=== PATIENT | male | born 1955 | race Caucasian/White ===

== ENCOUNTER 2019-03-21 11:09 | Outpatient (CLI) | payer OTHER | END 2019-03-21 11:13 | disposition home or self-care (01) | LOC: SONOGRAMA 11:09 → MAMO-SONO 11:15 | DX: R10.84 Generalized abdominal pain (principal) ==

== ENCOUNTER 2022-07-04 14:51 | Outpatient (CLI) | payer OTHER | END 2022-07-04 14:55 | disposition home or self-care (01) | LOC: RAD 14:51 | PROVIDERS: ATTEND Specialist | DX: J45.991 Cough variant asthma (principal) ==

== ENCOUNTER 2022-10-18 13:31 | Outpatient (CLI) | payer OTHER | END 2022-10-18 13:37 | disposition home or self-care (01) | LOC: LAB 13:31 | PROVIDERS: ATTEND Specialist | DX: B15.9 Hepatitis A without hepatic coma (principal); B19.10 Unspecified viral hepatitis B without hepatic coma; B19.20 Unspecified viral hepatitis C without hepatic coma; K76.0 Fatty (change of) liver, not elsewhere classified; I10 Essential (primary) hypertension; E78.00 Pure hypercholesterolemia, unspecified; D64.9 Anemia, unspecified; E11.21 Type 2 diabetes mellitus with diabetic nephropathy; E03.8 Other specified hypothyroidism; E11.65 Type 2 diabetes mellitus with hyperglycemia ==

== ENCOUNTER 2023-01-19 08:54 | Outpatient (CLI) | payer OTHER ==
[2023-01-19 10:06] LABS: HEMATOCRIT 45.9 % (39.0-48.0); HEMOGLOBIN 15.3 g/dL (13-16.00); MEAN CORPUSCULAR HEMOGLOBIN 30.6 pg (27.00-32.0); MEAN CORPUSCULAR HGB CONC 33.3 g/dl (32.0-36.0); RED BLOOD COUNT 4.98 M/uL (4.00-6.00); RED CELL DISTRIBUTION WIDTH 14.8 % (11.5-14.5)
[2023-01-19 10:10] LABS: PLATELET COUNT 108 K/uL (150-450)
[2023-01-19 10:50] LABS: ALBUMIN 3.9 gm/dL (3.4-5.0); ALKALINE PHOSPHATASE 93 U/L (50-136); ALT/SGPT 120 U/L (12-78); AST/SGOT 79 U/L (15-37); BILIRUBIN TOTAL 1.01 mg/dL (0.3-1.2); BLOOD UREA NITROGEN 19 mg/dL (7-18); BUN CREA RATIO 20 (7.0-25.0); CALCIUM 9.6 mg/dL (8.5-10.1); CARBON DIOXIDE 28 mEq/L (21-32); CHLORIDE 103 mmol/L (98-107); CHOLESTEROL 131 mg/dL (0-200); CREATININE SERUM 0.96 mg/dL (0.70-1.30); GFR 77.66; GLOBULINA 3.8 G/DL (2.4-3.5); GLUCOSE FASTING 141 mg/dL (65-100); HDL 60 mg/dl (40-60); LDL 58 mg/dl (0-130); OSMOLALITY SERUM 275 MOSM/KG (275-295); POTASSIUM 4.28 mEq/L (3.5-5.1); SODIUM 135 mmol/L (136-145); TOTAL PROTEIN 7.7 gm/dL (6.4-8.2); TRIGLYCERIDES 66 mg/dL (0-150); VLDL 13 (0-39)
[2023-01-19 12:26] LABS: FOLIC ACID > 20.00 ng/ml (4.78-20)
[2023-01-20 09:08] LABS: % FREE PSA 36.2 % (.); CA 19-9 29 U/mL (0-35); free psa 0.94 ng/mL; total psa 2.6 ng/mL (0.0-4.0)
== END 2023-01-19 08:57 | disposition home or self-care (01) ==
LOC: LAB 08:54
PROVIDERS: ATTEND Specialist
DX: E11.69 Type 2 diabetes mellitus with other specified complication (principal); N39.9 Disorder of urinary system, unspecified; E03.8 Other specified hypothyroidism; E11.21 Type 2 diabetes mellitus with diabetic nephropathy; R07.81 Pleurodynia; Z13.220 Encounter for screening for lipoid disorders

== ENCOUNTER 2023-04-12 15:40 | Outpatient (CLI) | payer OTHER ==
[2023-04-12 16:21] LABS: HEMATOCRIT 44.8 % (39.0-48.0); HEMOGLOBIN 15.3 g/dL (13-16.00); MEAN CELL VOLUME 89.8 fL (80.0-100.00); MEAN CORPUSCULAR HEMOGLOBIN 30.6 pg (27.00-32.0); MEAN CORPUSCULAR HGB CONC 34.1 g/dl (32.0-36.0); RED BLOOD COUNT 4.99 M/uL (4.00-6.00); RED CELL DISTRIBUTION WIDTH 15.5 % (11.5-14.5)
[2023-04-12 16:47] LABS: PLATELET COUNT 103 K/uL (150-450)
[2023-04-12 16:49] LABS: ALBUMIN 3.9 gm/dL (3.4-5.0); BILIRUBIN TOTAL 1.45 mg/dL (0.3-1.2); CALCIUM 9.3 mg/dL (8.5-10.1); CHOL HDL RATIO 2.2 (0-5.0); CREATININE SERUM 0.96 mg/dL (0.70-1.30); GFR 77.66; GLOBULINA 3.9 G/DL (2.4-3.5); POTASSIUM 4.25 mEq/L (3.5-5.1); PROSTATIC SPECIFIC ANTIGEN 2.62 NG/ML (0.010-4.00); TOTAL PROTEIN 7.8 gm/dL (6.4-8.2)
[2023-04-13 12:05] LABS: FOLIC ACID > 20.00 ng/ml (4.78-20)
[2023-04-13 13:24] LABS: MANUAL PLATELET COUNT 190; PLATELET ESTIMATE NORMAL (NORMAL)
== END 2023-04-12 15:50 | disposition home or self-care (01) ==
LOC: LAB 15:40
PROVIDERS: ATTEND Internal Medicine Hematology & Oncology
DX: K76.0 Fatty (change of) liver, not elsewhere classified (principal); E78.2 Mixed hyperlipidemia; I11.9 Hypertensive heart disease without heart failure; D63.8 Anemia in other chronic diseases classified elsewhere; D50.8 Other iron deficiency anemias; R79.9 Abnormal finding of blood chemistry, unspecified; R74.02 Elevation of levels of lactic acid dehydrogenase [LDH]; K76.89 Other specified diseases of liver; D51.8 Other vitamin B12 deficiency anemias; R97.0 Elevated carcinoembryonic antigen [CEA]; R97.8 Other abnormal tumor markers; R97.20 Elevated prostate specific antigen [PSA]; D69.6 Thrombocytopenia, unspecified; D51.1 Vitamin B12 deficiency anemia due to selective vitamin B12 malabsorption with proteinuria; D51.3 Other dietary vitamin B12 deficiency anemia; E11.9 Type 2 diabetes mellitus without complications

== ENCOUNTER 2023-04-16 15:12 | Outpatient (CLI) | payer OTHER ==
[2023-04-16 16:02] LABS: INR 1.05
[2023-04-16 16:07] LABS: ALBUMIN 3.9 gm/dL (3.4-5.0); BILIRUBIN TOTAL 0.79 mg/dL (0.3-1.2); BILIRUBIN,CONJUGATED 0.26 mg/dL (0.0-0.2); BILIRUBIN,UNCONJUGATED 0.53 mg/dL (0.0-0.6); TOTAL PROTEIN 7.8 gm/dL (6.4-8.2)
== END 2023-04-16 15:17 | disposition home or self-care (01) ==
LOC: LAB 15:12
PROVIDERS: ATTEND Specialist
DX: D64.9 Anemia, unspecified (principal); D68.8 Other specified coagulation defects; C22.0 Liver cell carcinoma; K75.81 Nonalcoholic steatohepatitis (NASH)

== ENCOUNTER 2023-07-23 14:14 | Outpatient (CLI) | payer OTHER ==
[2023-07-23 14:59] LABS: HEMATOCRIT 44.4 % (39.0-48.0); HEMOGLOBIN 15.2 g/dL (13-16.00); MEAN CELL VOLUME 91.8 fL (80.0-100.00); MEAN CORPUSCULAR HEMOGLOBIN 31.4 pg (27.00-32.0); MEAN CORPUSCULAR HGB CONC 34.2 g/dl (32.0-36.0); RED BLOOD COUNT 4.84 M/uL (4.00-6.00); RED CELL DISTRIBUTION WIDTH 15.3 % (11.5-14.5)
[2023-07-23 15:04] LABS: PLATELET COUNT 104 K/uL (150-450)
[2023-07-23 15:21] LABS: BILIRUBIN TOTAL 1.31 mg/dL (0.3-1.2); CALCIUM 9.8 mg/dL (8.5-10.1); CHOL HDL RATIO 2.1 (0-5.0); CREATININE SERUM 0.88 mg/dL (0.70-1.30); GFR 85.86; GLOBULINA 3.6 G/DL (2.4-3.5); POTASSIUM 3.99 mEq/L (3.5-5.1); TOTAL PROTEIN 7.6 gm/dL (6.4-8.2)
== END 2023-07-23 14:15 | disposition home or self-care (01) ==
LOC: LAB 14:14
PROVIDERS: ATTEND Internal Medicine
DX: E11.9 Type 2 diabetes mellitus without complications (principal); E78.00 Pure hypercholesterolemia, unspecified; R94.5 Abnormal results of liver function studies

== ENCOUNTER 2023-08-09 13:10 | Outpatient (CLI) | payer OTHER ==
[2023-08-09 14:20] LABS: PH,URINE 5.5 (5.0-8.0); URINE APPEARANCE Clear; URINE BILIRRUBIN Negative (NEGATIVE); URINE BLOOD Negative; URINE COLOR Yellow; URINE LEUKOCYTE Negative; URINE NITRATE Negative; URINE PROTEIN Negative (NEGATIVE); URINE UROBILINOGEN 0.2 E.U./dl
[2023-08-09 14:25] LABS: URINE BACTERIA 11.3 uL (0.0-1933); URINE EPITHELIAL CELLS 2.3 uL (0.0-38.8); URINE RBC 4.1 uL (0.0-20.8)
[2023-08-09 14:27] LABS: URINE GLUCOSE >=1000 MG/DL (NEGATIVE); URINE WBC 0.7 uL (0.0-23.2)
[2023-08-09 15:04] LABS: FREE TRIODOTIRONINE 2.41 pg/ml (2.18-3.98); T4 FREE 0.93 NG/ML (0.76-1.46); TSH 2.09 uIU/mL (0.358-3.74)
== END 2023-08-09 13:11 | disposition home or self-care (01) ==
LOC: LAB 13:10
PROVIDERS: ATTEND Specialist
DX: N39.9 Disorder of urinary system, unspecified (principal); E11.69 Type 2 diabetes mellitus with other specified complication; N25.81 Secondary hyperparathyroidism of renal origin; E11.21 Type 2 diabetes mellitus with diabetic nephropathy; E03.8 Other specified hypothyroidism; D64.89 Other specified anemias; Z12.5 Encounter for screening for malignant neoplasm of prostate; Z13.220 Encounter for screening for lipoid disorders

== ENCOUNTER 2023-08-09 14:06 | Outpatient (CLI) | payer OTHER | END 2023-08-09 14:11 | disposition home or self-care (01) | LOC: SONOGRAMA 14:06 | PROVIDERS: ATTEND Internal Medicine Hematology & Oncology | DX: D69.6 Thrombocytopenia, unspecified (principal); D51.1 Vitamin B12 deficiency anemia due to selective vitamin B12 malabsorption with proteinuria; D51.3 Other dietary vitamin B12 deficiency anemia; I10 Essential (primary) hypertension; E11.9 Type 2 diabetes mellitus without complications; E78.2 Mixed hyperlipidemia ==

== ENCOUNTER 2023-11-08 14:42 | Outpatient (CLI) | payer OTHER ==
[2023-11-08 15:27] LABS: PH,URINE 5.5 (5.0-8.0); URINE APPEARANCE Clear; URINE BILIRRUBIN Negative (NEGATIVE); URINE BLOOD Negative; URINE COLOR Yellow; URINE LEUKOCYTE Negative; URINE NITRATE Negative; URINE PROTEIN Negative (NEGATIVE); URINE UROBILINOGEN 0.2 E.U./dl
[2023-11-08 15:31] LABS: URINE BACTERIA 12.5 uL (0.0-1933); URINE RBC 2.7 uL (0.0-20.8)
[2023-11-08 15:39] LABS: URINE GLUCOSE >=1000 MG/DL (NEGATIVE)
[2023-11-08 15:49] LABS: INR 1.07; PARTIAL THROMBOPLASTIN TIME 26.8 SECONDS (22.0-34.0); PROTHROMBIN TIME 11.2 SECONDS (9.0-11.5)
[2023-11-08 16:21] LABS: % SATURACION 35.9 % (20-50); ALBUMIN 4.1 gm/dL (3.4-5.0); BILIRUBIN TOTAL 1.8 mg/dL (0.3-1.2); BILIRUBIN,CONJUGATED 0.46 mg/dL (0.0-0.2); BILIRUBIN,UNCONJUGATED 1.34 mg/dL (0.0-0.6); CALCIUM 9.9 mg/dL (8.5-10.1); CHOL HDL RATIO 2.2 (0-5.0); CREATININE SERUM 0.97 mg/dL (0.70-1.30); FERRITIN 91.9 NG/ML (26-388); GFR 76.51; POTASSIUM 4.64 mEq/L (3.5-5.1); TOTAL PROTEIN 8.1 gm/dL (6.4-8.2); TSH 2.16 uIU/mL (0.358-3.74)
[2023-11-08 17:19] LABS: COL EPI 134 SECONDS (82-175)
[2023-11-08 17:22] LABS: HEMATOCRIT 46.5 % (39.0-48.0); HEMOGLOBIN 15.9 g/dL (13-16.00); MEAN CELL VOLUME 92.4 fL (80.0-100.00); MEAN CORPUSCULAR HEMOGLOBIN 31.5 pg (27.00-32.0); MEAN CORPUSCULAR HGB CONC 34.1 g/dl (32.0-36.0); RED BLOOD COUNT 5.03 M/uL (4.00-6.00); RED CELL DISTRIBUTION WIDTH 15.1 % (11.5-14.5)
[2023-11-08 17:27] LABS: PLATELET COUNT 112 K/uL (150-450)
[2023-11-09 09:09] LABS: MANUAL PLATELET COUNT 290
[2023-11-09 09:31] LABS: PLATELET ESTIMATE NORMAL (NORMAL)
[2023-11-09 15:36] LABS: FOLIC ACID > 20.00 ng/ml (4.78-20)
[2023-11-10 09:15] LABS: ALPHA FETO PROTEIN 3.4 ng/mL (0.0-8.4)
[2023-11-10 13:09] LABS: ERYTHROPOIETIN 14.6 mIU/mL (2.6-18.5)
[2023-11-16 15:07] LABS: VITAMIN K 0.88 ng/mL (0.10-2.20)
== END 2023-11-08 14:56 | disposition home or self-care (01) ==
LOC: LAB 14:42
PROVIDERS: ATTEND Internal Medicine Hematology & Oncology
DX: D69.6 Thrombocytopenia, unspecified (principal); D51.1 Vitamin B12 deficiency anemia due to selective vitamin B12 malabsorption with proteinuria; D51.3 Other dietary vitamin B12 deficiency anemia; I10 Essential (primary) hypertension; E11.9 Type 2 diabetes mellitus without complications; E78.2 Mixed hyperlipidemia; K76.0 Fatty (change of) liver, not elsewhere classified; K74.69 Other cirrhosis of liver; D63.1 Anemia in chronic kidney disease; D50.8 Other iron deficiency anemias; R79.9 Abnormal finding of blood chemistry, unspecified; R74.02 Elevation of levels of lactic acid dehydrogenase [LDH]; K76.89 Other specified diseases of liver; D68.8 Other specified coagulation defects; C25.9 Malignant neoplasm of pancreas, unspecified; R77.2 Abnormality of alphafetoprotein; E03.9 Hypothyroidism, unspecified; N39.9 Disorder of urinary system, unspecified; D64.9 Anemia, unspecified; E11.65 Type 2 diabetes mellitus with hyperglycemia

== ENCOUNTER 2024-02-25 14:30 | Outpatient (CLI) | payer OTHER ==
[2024-02-25 15:10] LABS: HEMATOCRIT 43.9 % (39.0-48.0); HEMOGLOBIN 14.9 g/dL (13-16.00); MEAN CORPUSCULAR HEMOGLOBIN 31.3 pg (27.00-32.0); MEAN CORPUSCULAR HGB CONC 34.1 g/dl (32.0-36.0); RED BLOOD COUNT 4.77 M/uL (4.00-6.00); RED CELL DISTRIBUTION WIDTH 15.4 % (11.5-14.5)
[2024-02-25 15:25] LABS: PLATELET COUNT 119 K/uL (150-450)
[2024-02-25 15:47] LABS: ALBUMIN 4.1 gm/dL (3.4-5.0); BILIRUBIN TOTAL 1.43 mg/dL (0.3-1.2); BILIRUBIN,CONJUGATED 0.43 mg/dL (0.0-0.2); CHOL HDL RATIO 2.2 (0-5.0); CREATININE SERUM 1.02 mg/dL (0.70-1.30); GFR 72.2; INR 1.1; PARTIAL THROMBOPLASTIN TIME 26.3 SECONDS (22.0-34.0); POTASSIUM 4.29 mEq/L (3.5-5.1); PROTHROMBIN TIME 11.9 SECONDS (9.0-11.5); TOTAL PROTEIN 8.1 gm/dL (6.4-8.2); TSH 1.81 uIU/mL (0.358-3.74)
== END 2024-02-25 14:35 | disposition home or self-care (01) ==
LOC: LAB 14:30
PROVIDERS: ATTEND Specialist
DX: E03.9 Hypothyroidism, unspecified (principal); E78.2 Mixed hyperlipidemia; E11.65 Type 2 diabetes mellitus with hyperglycemia; D64.9 Anemia, unspecified; D68.8 Other specified coagulation defects; K75.81 Nonalcoholic steatohepatitis (NASH); E11.21 Type 2 diabetes mellitus with diabetic nephropathy; I11.9 Hypertensive heart disease without heart failure; I10 Essential (primary) hypertension; D63.8 Anemia in other chronic diseases classified elsewhere

== ENCOUNTER 2024-05-06 14:43 | Outpatient (CLI) | payer OTHER ==
[2024-05-06 15:37] LABS: HEMATOCRIT 45.3 % (39.0-48.0); HEMOGLOBIN 15.4 g/dL (13-16.00); MEAN CELL VOLUME 91.1 fL (80.0-100.00); RED BLOOD COUNT 4.97 M/uL (4.00-6.00)
[2024-05-06 15:43] LABS: URINE APPEARANCE Clear; URINE BILIRRUBIN Negative (NEGATIVE); URINE BLOOD Negative; URINE COLOR Yellow; URINE KETONE Negative (NEGATIVE); URINE LEUKOCYTE Negative; URINE NITRATE Negative; URINE PROTEIN Negative (NEGATIVE); URINE UROBILINOGEN 0.2 E.U./dl
[2024-05-06 15:46] LABS: URINE BACTERIA 8.5 uL (0.0-1933); URINE EPITHELIAL CELLS 1.4 uL (0.0-38.8)
[2024-05-06 15:49] LABS: PLATELET COUNT 112 K/uL (150-450)
[2024-05-06 15:52] LABS: CREATININE URINE RANDOM 94.4 MG/DL (30-125); URINE GLUCOSE >=1000 MG/DL (NEGATIVE); URINE WBC 1.7 uL (0.0-23.2)
[2024-05-06 16:37] LABS: ALBUMIN 4.1 gm/dL (3.4-5.0); BILIRUBIN TOTAL 1.23 mg/dL (0.3-1.2); BILIRUBIN,CONJUGATED 0.38 mg/dL (0.0-0.2); BILIRUBIN,UNCONJUGATED 0.85 mg/dL (0.0-0.6); CALCIUM 9.8 mg/dL (8.5-10.1); CHOL HDL RATIO 2.3 (0-5.0); CREATININE SERUM 0.98 mg/dL (0.70-1.30); FREE TRIODOTIRONINE 2.44 pg/ml (2.18-3.98); GFR 75.61; GLOBULINA 3.9 G/DL (2.4-3.5); POTASSIUM 4.1 mEq/L (3.5-5.1); T4 FREE 0.91 NG/ML (0.76-1.46); TSH 1.7 uIU/mL (0.358-3.74)
[2024-05-07 08:31] LABS: PLATELET ESTIMATE NORMAL (NORMAL)
== END 2024-05-06 14:54 | disposition home or self-care (01) ==
LOC: LAB 14:43
PROVIDERS: ATTEND Specialist
DX: I11.9 Hypertensive heart disease without heart failure (principal); E78.2 Mixed hyperlipidemia; I10 Essential (primary) hypertension; E11.9 Type 2 diabetes mellitus without complications; E03.9 Hypothyroidism, unspecified; E11.21 Type 2 diabetes mellitus with diabetic nephropathy; N39.9 Disorder of urinary system, unspecified; E11.65 Type 2 diabetes mellitus with hyperglycemia; D64.9 Anemia, unspecified; E11.8 Type 2 diabetes mellitus with unspecified complications; Z79.4 Long term (current) use of insulin; E06.3 Autoimmune thyroiditis

== ENCOUNTER 2024-06-06 12:33 | Outpatient (CLI) | payer OTHER ==
[2024-06-06 14:56] LABS: HEMATOCRIT 45.8 % (39.0-48.0); HEMOGLOBIN 15.7 g/dL (13-16.00); MEAN CELL VOLUME 90.4 fL (80.0-100.00); MEAN CORPUSCULAR HGB CONC 34.3 g/dl (32.0-36.0); RED BLOOD COUNT 5.07 M/uL (4.00-6.00); RED CELL DISTRIBUTION WIDTH 15.1 % (11.5-14.5)
[2024-06-06 15:15] LABS: INR 1.08; PARTIAL THROMBOPLASTIN TIME 26.1 SECONDS (22.0-34.0); PROTHROMBIN TIME 11.7 SECONDS (9.0-11.5)
[2024-06-06 15:22] LABS: PLATELET COUNT 110 K/uL (150-450)
[2024-06-06 15:42] LABS: % SATURACION 23.9 % (20-50); BILIRUBIN TOTAL 1.27 mg/dL (0.3-1.2); CALCIUM 9.8 mg/dL (8.5-10.1); CREATININE SERUM 1.03 mg/dL (0.70-1.30); FERRITIN 70.7 NG/ML (26-388); GFR 71.39; POTASSIUM 4.15 mEq/L (3.5-5.1)
[2024-06-06 15:44] LABS: COL EPI 181 SECONDS (82-175)
[2024-06-08 13:25] LABS: FOLIC ACID > 20.00 ng/ml (4.78-20); VITAMIN D3 25 HYDROXY 72.48 ng/ml (30-120)
== END 2024-06-06 12:34 | disposition home or self-care (01) ==
LOC: LAB 12:33
PROVIDERS: ATTEND Internal Medicine Hematology & Oncology
DX: D69.6 Thrombocytopenia, unspecified (principal); D51.1 Vitamin B12 deficiency anemia due to selective vitamin B12 malabsorption with proteinuria; D51.3 Other dietary vitamin B12 deficiency anemia; I10 Essential (primary) hypertension; E11.9 Type 2 diabetes mellitus without complications; E78.2 Mixed hyperlipidemia; K76.0 Fatty (change of) liver, not elsewhere classified; K74.69 Other cirrhosis of liver; D50.8 Other iron deficiency anemias; R79.9 Abnormal finding of blood chemistry, unspecified; R74.02 Elevation of levels of lactic acid dehydrogenase [LDH]; K76.89 Other specified diseases of liver; E55.9 Vitamin D deficiency, unspecified; D63.1 Anemia in chronic kidney disease; D68.8 Other specified coagulation defects; D69.1 Qualitative platelet defects; C25.9 Malignant neoplasm of pancreas, unspecified; R97.8 Other abnormal tumor markers; R97.0 Elevated carcinoembryonic antigen [CEA]; R77.2 Abnormality of alphafetoprotein

== ENCOUNTER 2024-07-24 15:35 | Outpatient (CLI) | payer OTHER ==
[2024-07-24 16:31] LABS: HEMATOCRIT 46.3 % (39.0-48.0); HEMOGLOBIN 15.2 g/dL (13-16.00); MEAN CELL VOLUME 91.9 fL (80.0-100.00); MEAN CORPUSCULAR HEMOGLOBIN 30.1 pg (27.00-32.0); MEAN CORPUSCULAR HGB CONC 32.8 g/dl (32.0-36.0); RED BLOOD COUNT 5.03 M/uL (4.00-6.00); RED CELL DISTRIBUTION WIDTH 15.9 % (11.5-14.5)
[2024-07-24 16:32] LABS: URINE BACTERIA 7.3 uL (0.0-1933); URINE RBC 3.3 uL (0.0-20.8)
[2024-07-24 16:34] LABS: URINE APPEARANCE Clear; URINE BILIRRUBIN Negative (NEGATIVE); URINE BLOOD Negative; URINE COLOR Yellow; URINE KETONE Negative (NEGATIVE); URINE LEUKOCYTE Negative; URINE NITRATE Negative; URINE PROTEIN Negative (NEGATIVE); URINE UROBILINOGEN 0.2 E.U./dl
[2024-07-24 16:37] LABS: PLATELET COUNT 100 K/uL (150-450)
[2024-07-24 16:55] LABS: URINE EPITHELIAL CELLS 1.1 uL (0.0-38.8); URINE GLUCOSE >=1000 MG/DL (NEGATIVE); URINE WBC 1.4 uL (0.0-23.2)
[2024-07-24 17:14] LABS: ALBUMIN 3.9 gm/dL (3.4-5.0); BILIRUBIN TOTAL 1.48 mg/dL (0.3-1.2); CALCIUM 9.8 mg/dL (8.5-10.1); CHOL HDL RATIO 2.3 (0-5.0); CREATININE SERUM 1.05 mg/dL (0.70-1.30); GFR 69.83; POTASSIUM 4.49 mEq/L (3.5-5.1); PROSTATIC SPECIFIC ANTIGEN 2.67 NG/ML (0.010-4.00); TOTAL PROTEIN 7.9 gm/dL (6.4-8.2); TSH 2.14 uIU/mL (0.358-3.74)
== END 2024-07-24 15:46 | disposition home or self-care (01) ==
LOC: LAB 15:35
PROVIDERS: ATTEND Specialist
DX: E03.9 Hypothyroidism, unspecified (principal); N39.0 Urinary tract infection, site not specified; D40.0 Neoplasm of uncertain behavior of prostate; E78.2 Mixed hyperlipidemia; E11.65 Type 2 diabetes mellitus with hyperglycemia; D64.9 Anemia, unspecified; N25.81 Secondary hyperparathyroidism of renal origin; I11.9 Hypertensive heart disease without heart failure; I10 Essential (primary) hypertension

== ENCOUNTER 2024-11-28 12:33 | Outpatient (CLI) | payer OTHER ==
[2024-11-28 13:28] LABS: BASO % 0.5 % (0.1-1.2); EOS # 0.07 (0.04-0.54); EOS % 1.2 % (0.7-7.0); LYMPH # 1.22 (1.18-3.74); LYMPH % 20.4 % (19.3-53.1); MEAN PLATELET VOLUME 12.00 fl (9.4-12.4); MONO # 0.47 (0.24-0.82); MONO % 7.8 % (4.7-12.5); NEUT # 4.19 (1.56-6.13); NEUT % 69.9 % (34.0-71.1); RED CELL DISTRIBUTION WIDTH 15.4 % (11.6-14.4)
[2024-11-28 13:49] LABS: INR 1.12
[2024-11-28 13:51] LABS: CREATININE URINE RANDOM 181.0 MG/DL (30-125)
[2024-11-28 14:29] LABS: ALT/SGPT 102.0 U/L (12-78); AST/SGOT 69.0 U/L (15-37); BILIRUBIN TOTAL 1.69 mg/dL (0.3-1.2); BILIRUBIN,CONJUGATED 0.52 mg/dL (0.0-0.2); BUN CREA RATIO 23.0 (7.0-25.0); CHOL HDL RATIO 1.4 (0-5.0); CREATININE SERUM 0.99 mg/dL (0.70-1.30); GAMMA GLUTAMIL TRANSFERASE 221.0 U/L (15-85); GFR 74.52; GLOBULINA 3.7 G/DL (2.4-3.5); GLUCOSE FASTING 145.0 mg/dL (65-100); HDL 64.0 mg/dl (40-60); LDL 11.0 mg/dl (0-130); OSMOLALITY SERUM 288.0 MOSM/KG (275-295); VLDL 12.0 (0-39)
== END 2024-11-28 12:39 | disposition home or self-care (01) ==
LOC: LAB 12:33
PROVIDERS: ATTEND Specialist
DX: E11.21 Type 2 diabetes mellitus with diabetic nephropathy (principal); E78.2 Mixed hyperlipidemia; E11.65 Type 2 diabetes mellitus with hyperglycemia; D64.9 Anemia, unspecified; D68.8 Other specified coagulation defects; K75.81 Nonalcoholic steatohepatitis (NASH)

== ENCOUNTER → 2025-01-12 13:00 | Outpatient (CLI) | payer OTHER ==
[2025-01-12 14:23] LABS: ALT/SGPT 94.0 U/L (12-78); AST/SGOT 59.0 U/L (15-37); BILIRUBIN TOTAL 1.84 mg/dL (0.3-1.2); BUN CREA RATIO 13.0 (7.0-25.0); CHOL HDL RATIO 2.0 (0-5.0); CREATININE SERUM 1.12 mg/dL (0.70-1.30); GFR 64.63; GLOBULINA 4.0 G/DL (2.4-3.5); GLUCOSE FASTING 168.0 mg/dL (65-100); HDL 59.0 mg/dl (40-60); LDL 37.0 mg/dl (0-130); OSMOLALITY SERUM 282.0 MOSM/KG (275-295); PHOSPHOKINASE CREATININE 204.0 U/L (39-308); VLDL 24.0 (0-39)
== END | disposition home or self-care (01) ==
LOC: LAB 13:00
DX: E78.2 Mixed hyperlipidemia (principal); I11.9 Hypertensive heart disease without heart failure; I10 Essential (primary) hypertension; E11.9 Type 2 diabetes mellitus without complications

== ENCOUNTER 2025-01-29 12:40 | Outpatient (CLI) | payer OTHER ==
[2025-01-29 13:52] LABS: URINE APPEARANCE Clear; URINE BILIRRUBIN Negative (NEGATIVE); URINE BLOOD Negative; URINE COLOR Yellow; URINE KETONE Negative (NEGATIVE); URINE LEUKOCYTE Negative; URINE NITRATE Negative; URINE PROTEIN Negative (NEGATIVE); URINE UROBILINOGEN 0.2 E.U./dl
[2025-01-29 13:55] LABS: URINE EPITHELIAL CELLS 1.5 uL (0.0-38.8); URINE RBC 2.1 uL (0.0-20.8)
[2025-01-29 14:11] LABS: URINE BACTERIA 2.3 uL (0.0-1933); URINE CAST 0.00 uL (0.0-1.40); URINE GLUCOSE >=1000 MG/DL (NEGATIVE); URINE WBC 1.5 uL (0.0-23.2)
[2025-01-29 14:11] LABS: BASO % 0.5 % (0.1-1.2); EOS # 0.11 (0.04-0.54); EOS % 2.6 % (0.7-7.0); LYMPH # 0.94 (1.18-3.74); LYMPH % 22.4 % (19.3-53.1); MEAN PLATELET VOLUME 11.50 fl (9.4-12.4); MONO # 0.54 (0.24-0.82); NEUT # 2.56 (1.56-6.13); NEUT % 61.1 % (34.0-71.1); RED CELL DISTRIBUTION WIDTH 14.6 % (11.6-14.4)
[2025-01-29 14:30] LABS: MONO % 12.9 % (4.7-12.5)
[2025-01-29 14:45] LABS: INR 1.07
[2025-01-29 15:10] LABS: FOLIC ACID > 20.00 ng/ml (4.78-20); VITAMIN D3 25 HYDROXY 60.83 ng/ml (30-120)
[2025-01-29 15:16] LABS: CREATININE URINE RANDOM 101.0 MG/DL (30-125)
[2025-01-29 15:16] LABS: % SATURACION 21.3 % (20-50); ALT/SGPT 123.0 U/L (12-78); AST/SGOT 84.0 U/L (15-37); BILIRUBIN TOTAL 1.58 mg/dL (0.3-1.2); BILIRUBIN,CONJUGATED 0.5 mg/dL (0.0-0.2); BUN CREA RATIO 15.0 (7.0-25.0); CHOL HDL RATIO 2.2 (0-5.0); CREATININE SERUM 0.95 mg/dL (0.70-1.30); FE 75.0 ug/dl (65-175); GFR 78.15; GLOBULINA 4.1 G/DL (2.4-3.5); GLUCOSE FASTING 163.0 mg/dL (65-100); HDL 66.0 mg/dl (40-60); LDH 210.0 U/L (87-241); LDL 61.0 mg/dl (0-130); OSMOLALITY SERUM 285.0 MOSM/KG (275-295); PROSTATIC SPECIFIC ANTIGEN 3.02 NG/ML (0.010-4.00); VLDL 15.0 (0-39)
[2025-01-30 10:49] LABS: MANUAL PLATELET COUNT 89
[2025-01-30 14:54] LABS: COL ADP 91.0 SECONDS (56-102); COL EPI 131.0 SECONDS (82-175)
[2025-01-31 09:07] LABS: ALPHA FETO PROTEIN 2.8 ng/mL (0.0-8.4); TRANSFERIN 278.0 mg/dL (177-329)
== END 2025-01-29 14:36 | disposition home or self-care (01) ==
LOC: RAD 12:40
PROVIDERS: ATTEND Internal Medicine Hematology & Oncology
DX: D50.8 Other iron deficiency anemias (principal); E11.21 Type 2 diabetes mellitus with diabetic nephropathy; R79.9 Abnormal finding of blood chemistry, unspecified; I10 Essential (primary) hypertension; R74.02 Elevation of levels of lactic acid dehydrogenase [LDH]; K76.89 Other specified diseases of liver; E55.9 Vitamin D deficiency, unspecified; Z13.29 Encounter for screening for other suspected endocrine disorder; D63.1 Anemia in chronic kidney disease; D68.8 Other specified coagulation defects; D69.1 Qualitative platelet defects; C25.9 Malignant neoplasm of pancreas, unspecified; R97.8 Other abnormal tumor markers; R97.0 Elevated carcinoembryonic antigen [CEA]; R77.2 Abnormality of alphafetoprotein; D69.6 Thrombocytopenia, unspecified; D51.1 Vitamin B12 deficiency anemia due to selective vitamin B12 malabsorption with proteinuria; D51.3 Other dietary vitamin B12 deficiency anemia; E11.9 Type 2 diabetes mellitus without complications; E78.2 Mixed hyperlipidemia; K74.69 Other cirrhosis of liver; E03.9 Hypothyroidism, unspecified; D40.0 Neoplasm of uncertain behavior of prostate; E11.65 Type 2 diabetes mellitus with hyperglycemia; D64.9 Anemia, unspecified; K75.81 Nonalcoholic steatohepatitis (NASH); J45.998 Other asthma

== ENCOUNTER 2025-03-31 14:15 | Emergency (ER) | payer OTHER ==
[~2025-03-31] VITALS: Ht 170.2 cm; Wt 76.2 kg
[2025-03-31 16:06] VITALS: BP 125/76; O2SAT 99
[2025-03-31] MEDS ORDERED: [UNRECOGNIZED DRUG - OTHER] (16:11)
[2025-03-31] MEDS ORDERED: TIROSINT13 MCG (16:11)
[2025-03-31] MEDS ORDERED: JARDIANCE10 MG (16:11)
[2025-03-31] MEDS ORDERED: LANTUS SOL100 UNIT/1 (16:12)
[2025-03-31] MEDS ORDERED: CHILDREN'S ASPI81 MG (16:12)
[2025-03-31] MEDS ORDERED: JANUMET 50-1,01 EACH (16:12)
[2025-03-31] MEDS ORDERED: [UNRECOGNIZED DRUG - OTHER] (16:12)
[2025-03-31] MEDS ORDERED: ZETIA10 MG (16:12)
[2025-03-31 19:38] LABS: BASO % 0.4 % (0.1-1.2); EOS # 0.18 (0.04-0.54); EOS % 2.6 % (0.7-7.0); LYMPH # 1.12 (1.18-3.74); LYMPH % 16.3 % (19.3-53.1); MEAN PLATELET VOLUME 11.00 fl (9.4-12.4); MONO # 0.57 (0.24-0.82); MONO % 8.3 % (4.7-12.5); NEUT # 4.95 (1.56-6.13); NEUT % 72.0 % (34.0-71.1); RED CELL DISTRIBUTION WIDTH 14.6 % (11.6-14.4)
[2025-03-31 20:21] LABS: INR 1.08
[2025-03-31 20:25] LABS: ALT/SGPT 56.0 U/L (12-78); AST/SGOT 47.0 U/L (15-37); BILIRUBIN TOTAL 1.35 mg/dL (0.3-1.2); BUN CREA RATIO 20.0 (7.0-25.0); CREATININE SERUM 0.99 mg/dL (0.70-1.30); GFR 74.52; GLOBULINA 3.9 G/DL (2.4-3.5); GLUCOSE FASTING 136.0 mg/dL (65-100); OSMOLALITY SERUM 284.0 MOSM/KG (275-295)
[2025-04-03] MEDS ORDERED: LEVO-T50 MCG PO (10:30)
[2025-04-03] MEDS ORDERED: MULTI VITAMIN1 EACH PO (10:31)
== END 2025-03-31 21:56 | disposition home or self-care (01) ==
LOC: ER 14:15
PROVIDERS: General Practice
DX: R60.0 Localized edema (principal); I10 Essential (primary) hypertension; E11.9 Type 2 diabetes mellitus without complications; Z79.84 Long term (current) use of oral hypoglycemic drugs; Z91.018 Allergy to other foods

== ENCOUNTER 2025-04-02 13:11 | Outpatient (CLI) | payer OTHER ==
[~2025-04-02 13:11] MED LIST: CHILDREN'S ASPI81 MG; JANUMET 50-1,01 EACH; JARDIANCE10 MG; LANTUS SOL100 UNIT/1; TIROSINT13 MCG; ZETIA10 MG; [UNRECOGNIZED DRUG - OTHER]; [UNRECOGNIZED DRUG - OTHER]
[2025-04-02 14:23] LABS: URINE APPEARANCE Clear; URINE BILIRRUBIN Negative (NEGATIVE); URINE BLOOD Negative; URINE COLOR Yellow; URINE KETONE Trace (NEGATIVE); URINE LEUKOCYTE Negative; URINE NITRATE Negative; URINE PROTEIN Negative (NEGATIVE); URINE UROBILINOGEN 1.0 E.U./dl
[2025-04-02 14:25] LABS: URINE BACTERIA 9.1 uL (0.0-1933)
[2025-04-02 14:30] LABS: URINE CAST 0.14 uL (0.0-1.40); URINE EPITHELIAL CELLS 0.6 uL (0.0-38.8); URINE GLUCOSE >=1000 MG/DL (NEGATIVE); URINE RBC 1.1 uL (0.0-20.8); URINE WBC 1.0 uL (0.0-23.2)
[2025-04-03] MEDS ORDERED: LEVO-T50 MCG PO (10:30)
[2025-04-03] MEDS ORDERED: MULTI VITAMIN1 EACH PO (10:31)
== END 2025-04-02 13:16 | disposition home or self-care (01) ==
LOC: LAB 13:11
PROVIDERS: ATTEND Orthopaedic Surgery
DX: N39.0 Urinary tract infection, site not specified (principal); Z22.322 Carrier or suspected carrier of Methicillin resistant Staphylococcus aureus

== ENCOUNTER 2025-04-13 12:00 | Inpatient (IN) | payer OTHER ==
[2025-04-03 11:05] VITALS: BP 130/60
[~2025-04-13] VITALS: Ht 172.7 cm; Wt 73.5 kg
[~2025-04-13 12:00] MED LIST changes: +LEVO-T50 MCG PO; +MULTI VITAMIN1 EACH PO
[2025-04-13] MEDS ORDERED: CEFAZOLIN SODIUM 1,000 MG VIAL ONE (12:28)
[2025-04-13] MEDS ORDERED: BUPIVACAINE HCL/MPF 0.5% 30ML VIAL ONE (15:59)
[2025-04-13] MEDS ORDERED: CIPROFLOXACIN IN 5 % DEXTROSE 400 MG/200 ML PIGGYBAG IV ONE (21:16)
[2025-04-13] MEDS ORDERED: CIPROFLOXACIN IN 5 % DEXTROSE 200 ML IV SCH (21:21)
[2025-04-13] MEDS ORDERED: TRAMADOL HCL 50 MG TABLET PO PRN (21:30)
[2025-04-13] MEDS ORDERED: PROMETHAZINE HCL 50 MG/ML AMPUL IM PRN (21:30)
[2025-04-13] MEDS ORDERED: ONDANSETRON 4 MG TAB.RAPDIS PO PRN (21:30)
[2025-04-13] MEDS ORDERED: SODIUM CHLORIDE 0.45 % 1,000 ML IV SCH (21:30)
[2025-04-13] MEDS ORDERED: ONDANSETRON HCL 2 MG/ML VIAL IV PRN (21:30)
[2025-04-13] MEDS ORDERED: SUGAMMADEX SODIUM 200 MG/2 ML VIAL IV ONE (21:53)
[2025-04-14] MEDS ORDERED: CELECOXIB 200 MG CAPSULE PO ONE (00:15)
[2025-04-14] MEDS ORDERED: ACETAMINOPHEN 325 MG TABLET PO ONE (00:16)
[2025-04-14] MEDS ORDERED: CELECOXIB 200 MG CAPSULE PO SCH (01:00)
[2025-04-14] MEDS ORDERED: ACETAMINOPHEN 325 MG TABLET PO SCH (01:00)
[2025-04-14 01:20] VITALS: BP 130/78
[2025-04-14 08:40] VITALS: BP 119/60; O2SAT 100
[2025-04-14] MEDS ORDERED: PANTOPRAZOLE SODIUM 40 MG TABLET.DR PO SCH (09:00)
[2025-04-15] MEDS ORDERED: SENNA/DOCUSATE SODIUM 1 TAB TABLET PO SCH (09:00)
== END 2025-04-14 15:20 | disposition home or self-care (01) | DRG 494 ==
LOC: CIR.AMB 12:00 → SURG 21:27
PROVIDERS: ADMIT Orthopaedic Surgery; ATTEND Orthopaedic Surgery
PROC: 0LQ20ZZ Repair Left Shoulder Tendon, Open Approach (ICD-10-PCS; 2025-04-13)
PROC: 0PBB0ZZ Excision of Left Clavicle, Open Approach (ICD-10-PCS; 2025-04-13)
PROC: 0PSG36Z Reposition Left Humeral Shaft with Intramedullary Internal Fixation Device, Percutaneous Approach (ICD-10-PCS; principal; 2025-04-13 12:30)
DX: S42.322A Displaced transverse fracture of shaft of humerus, left arm, initial encounter for closed fracture (principal); S46.012A Strain of muscle(s) and tendon(s) of the rotator cuff of left shoulder, initial encounter

== ENCOUNTER 2025-04-21 10:22 | Outpatient (CLI) | payer OTHER | END 2025-04-21 10:26 | disposition home or self-care (01) | LOC: RAD 10:22 | PROVIDERS: ATTEND Orthopaedic Surgery | DX: S42.322D Displaced transverse fracture of shaft of humerus, left arm, subsequent encounter for fracture with routine healing (principal) ==

== ENCOUNTER 2025-04-29 10:32 | Outpatient (CLI) | payer OTHER ==
[2025-04-29 11:11] LABS: URINE APPEARANCE Clear; URINE BILIRRUBIN Negative (NEGATIVE); URINE BLOOD Negative; URINE COLOR Yellow; URINE KETONE Negative (NEGATIVE); URINE LEUKOCYTE Negative; URINE NITRATE Negative; URINE PROTEIN Negative (NEGATIVE); URINE UROBILINOGEN 0.2 E.U./dl
[2025-04-29 11:12] LABS: URINE BACTERIA 12.5 uL (0.0-1933); URINE EPITHELIAL CELLS 2.9 uL (0.0-38.8)
[2025-04-29 11:22] LABS: URINE CAST 0.00 uL (0.0-1.40); URINE GLUCOSE >=1000 MG/DL (NEGATIVE); URINE RBC 1.9 uL (0.0-20.8); URINE WBC 0.7 uL (0.0-23.2)
[2025-04-29 12:14] LABS: ALT/SGPT 64.0 U/L (12-78); AST/SGOT 43.0 U/L (15-37); BILIRUBIN TOTAL 1.03 mg/dL (0.3-1.2); BUN CREA RATIO 19.0 (7.0-25.0); CHOL HDL RATIO 2.1 (0-5.0); CREATININE SERUM 0.81 mg/dL (0.70-1.30); GFR 93.94; GLOBULINA 3.9 G/DL (2.4-3.5); GLUCOSE FASTING 120.0 mg/dL (65-100); HDL 59.0 mg/dl (40-60); LDL 48.0 mg/dl (0-130); OSMOLALITY SERUM 285.0 MOSM/KG (275-295); VLDL 18.0 (0-39)
== END 2025-04-29 10:51 | disposition home or self-care (01) ==
LOC: LAB 10:32
PROVIDERS: ATTEND Orthopaedic Surgery
DX: E55.9 Vitamin D deficiency, unspecified (principal); M85.9 Disorder of bone density and structure, unspecified; E56.1 Deficiency of vitamin K; E11.65 Type 2 diabetes mellitus with hyperglycemia; Z79.4 Long term (current) use of insulin; E11.8 Type 2 diabetes mellitus with unspecified complications